=== PATIENT | male | born 1990 | race Caucasian/White ===

== ENCOUNTER 2023-07-14 07:30 | Outpatient (CLI) | payer OTHER, SELFPAY | END 2023-07-14 07:31 | disposition home or self-care (01) | PROVIDERS: PCP Family Medicine; Referring Provider Family Medicine; Visit Provider Obstetrics & Gynecology | DX: Z31.41 Encounter for fertility testing (principal) | CPT/HCPCS: 89322 ==

== ENCOUNTER 2023-07-22 16:03 | Outpatient (CLI) | payer OTHER, SELFPAY | END 2023-07-22 16:04 | disposition home or self-care (01) | PROVIDERS: PCP Family Medicine; Visit Provider Family Medicine | DX: Z00.00 Encounter for general adult medical examination without abnormal findings (principal); R53.83 Other fatigue; Z13.6 Encounter for screening for cardiovascular disorders; Z13.29 Encounter for screening for other suspected endocrine disorder | CPT/HCPCS: 80053; 80061; 84443 ==

== ENCOUNTER 2025-05-27 09:27 | Outpatient (CLI) | payer OTHER, SELFPAY ==
--- NOTE | 2025-06-05 14:43 | W.PM.SLEEP ---
Sleep Study Details Details Interpreting Provider: Kem Date of Sleep Study: 05/27/25 Sleep Study Details: STUDY TYPE:? Home unattended ? BMI:? 31.24 ORDERING PROVIDER:? Constantine INDICATION:? Concern for sleep apnea ? SLEEP SUMMARY:? 278 minutes monitored RESPIRATORY SUMMARY:? AHI 67.5 per rule 1A, 66.2 per CMS guideline, central index 7.1, low oxygen 70 36.6% of study oxygen less than 90% Snoring 77% PERIODIC LIMB MOVEMENTS OF SLEEP:? Not recorded CARDIAC:? Range 46-116, mean 73.3 beats per minute IMPRESSION:? Severe obstructive sleep apnea with approximately 10% of the events being central apneas RECOMMENDATION: Recommend in-lab titration study.
== END 2025-05-27 09:28 | disposition home or self-care (01) ==
PROVIDERS: PCP Family Medicine; Visit Provider Family Medicine
DX: G47.33 Obstructive sleep apnea (adult) (pediatric) (principal)
CPT/HCPCS: 95806